=== PATIENT | female | born 1995 | race Two or more races ===

== ENCOUNTER 2023-05-25 22:10 | Emergency (ER) | payer OTHER ==
[~2023-05-25] VITALS: Ht 157.5 cm; Wt 62.6 kg
[~2023-05-25 22:10] MED LIST: AMOX1TAB12 PO; FLUCONAZOLE150 MG PO; ZOLOFT50 MG
[2023-05-26 00:49] LABS: HEMATOCRIT 41.1 % (36.0-45.00); HEMOGLOBIN 13.8 g/dL (12.0-15.00); MEAN CELL VOLUME 88.1 fL (80.00-100.00); MEAN CORPUSCULAR HEMOGLOBIN 29.6 pg (27.00-32.0); MEAN CORPUSCULAR HGB CONC 33.5 g/dl (32.0-36.0); PLATELET COUNT 258 K/uL (150-450); RED BLOOD COUNT 4.67 M/uL (4.00-6.00)
[2023-05-26 01:04] LABS: CALCIUM 9.7 mg/dL (8.5-10.1); CREATININE SERUM 0.75 mg/dL (0.55-1.02); GFR 92.01; POTASSIUM 4.4 mEq/L (3.5-5.1)
[2023-05-26] MEDS ORDERED: ZOFRAN8 MG PO (02:25)
[2023-05-26] MEDS ORDERED: PEPCID AC20 MG PO (02:25)
== END 2023-05-26 03:13 | disposition home or self-care (01) ==
LOC: ER 22:10
PROVIDERS: General Practice
DX: K52.89 Other specified noninfective gastroenteritis and colitis (principal); R10.9 Unspecified abdominal pain

== ENCOUNTER 2024-11-29 07:22 | Emergency (ER) | payer OTHER ==
[~2024-11-29] VITALS: Ht 157.5 cm; Wt 62.6 kg
[~2024-11-29 07:22] MED LIST changes: +PEPCID AC20 MG PO; +ZOFRAN8 MG PO
[2024-11-29] MEDS ORDERED: DEXAMETHASONE SODIUM PHOSPHATE 4 MG/ML VIAL ONE (08:23)
[2024-11-29] MEDS ORDERED: DEXAMETHASONE SODIUM PHOSPHATE 4 MG/ML VIAL IM STA (08:23)
[2024-11-29 08:56] LABS: COVID-19 AG NEGATIVE (NEGATIVE); INFLUENZA A AG NEGATIVE (NEGATIVE)
== END 2024-11-29 09:48 | disposition home or self-care (01) ==
LOC: ER 07:41
PROVIDERS: General Practice
DX: B34.9 Viral infection, unspecified (principal); J00 Acute nasopharyngitis [common cold]; Z20.822 Contact with and (suspected) exposure to COVID-19

== ENCOUNTER 2025-06-01 04:27 | Emergency (ER) | payer OTHER ==
[~2025-06-01] VITALS: Ht 157.5 cm; Wt 61.2 kg
[2025-06-01] MEDS ORDERED: KETOROLAC TROMETHAMINE 60 MG VIAL IM ONE (05:00)
[2025-06-01] MEDS ORDERED: CEFTRIAXONE SODIUM 1,000 MG VIAL IM ONE (05:00)
[2025-06-01] MEDS ORDERED: NEOMYCIN/POLYMYXIN B/HYDROCORT 20 DR/ML BOTTLE OT ONE (05:00)
[2025-06-01 06:16] LABS: BASO % 0.7 % (0.1-1.2); EOS # 0.16 (0.04-0.54); EOS % 1.8 % (0.7-7.0); LYMPH # 2.36 (1.18-3.74); LYMPH % 27.1 % (19.3-53.1); MEAN PLATELET VOLUME 12.00 fl (9.4-12.4); MONO # 0.81 (0.24-0.82); MONO % 9.3 % (4.7-12.5); NEUT # 5.31 (1.56-6.13); NEUT % 60.9 % (34.0-71.1); RED CELL DISTRIBUTION WIDTH 11.9 % (11.6-14.4)
[2025-06-01 06:31] LABS: COVID-19 AG NEGATIVE (NEGATIVE)
== END 2025-06-01 07:07 | disposition home or self-care (01) ==
LOC: ER 04:28
PROVIDERS: General Practice
DX: H92.02 Otalgia, left ear (principal); R05.8 Other specified cough; Z20.822 Contact with and (suspected) exposure to COVID-19